=== PATIENT | male | born 1945 | race Caucasian/White ===

== ENCOUNTER 2020-05-12 14:19 | Inpatient (IN) | payer OTHER ==
[~2020-05-12] VITALS: Ht 175.3 cm; Wt 57.2 kg
[2020-05-12] MEDS ORDERED: BUSPAR 10MG10 MG PO (20:17)
[2020-05-12] MEDS ORDERED: GLUCOPHAGE XR500 M1 PO (20:18)
[2020-05-12] MEDS ORDERED: VALSARTAN160 MG PO (20:19)
[2020-05-12] MEDS ORDERED: KENALOG CREAM 015 GM TOP (20:24)
[2020-05-13 07:33] LABS: HEMOGLOBIN 11.2 gm/dl (14.0-17.5); RED BLOOD COUNT 3.73 M/UL (4.20-5.50); WHITE BLOOD COUNT 4.6 K/UL (4.5-11.0)
[2020-05-13 08:02] LABS: BUN/CREATININE RATIO 27 (0-10)
[2020-05-14 03:35] LABS: HEMOGLOBIN 10.3 gm/dl (14.0-17.5); WHITE BLOOD COUNT 5.7 K/UL (4.5-11.0)
[2020-05-14 03:38] LABS: RED BLOOD COUNT 3.28 M/UL (4.20-5.50)
[2020-05-14 03:58] LABS: BUN/CREATININE RATIO 26 (0-10)
[2020-05-15 04:02] LABS: HEMOGLOBIN 9.6 gm/dl (14.0-17.5); RED BLOOD COUNT 3.12 M/UL (4.20-5.50); WHITE BLOOD COUNT 4.7 K/UL (4.5-11.0)
[2020-05-15 04:41] LABS: BUN/CREATININE RATIO 29 (0-10)
[2020-05-16 06:40] LABS: HEMOGLOBIN 9.3 gm/dl (14.0-17.5); RED BLOOD COUNT 2.99 M/UL (4.20-5.50); WHITE BLOOD COUNT 4.5 K/UL (4.5-11.0)
[2020-05-16 07:11] LABS: BUN/CREATININE RATIO 33 (0-10)
[2020-05-16] MEDS ORDERED: HYDROCODON-ACE1 EAC2 PO (08:38)
[2020-05-16] MEDS ORDERED: NORCO 10-325 T1 EACH PO (11:20)
== END 2020-05-16 20:26 | DRG 481 ==
LOC: M/S 19:48
PROVIDERS: Internal Medicine; Orthopaedic Surgery; Physician Assistant Medical; ADMIT Internal Medicine
PROC: 0QS706Z Reposition Left Upper Femur with Intramedullary Internal Fixation Device, Open Approach (ICD-10-PCS; principal; 2020-05-13 15:30)
DX: S72.142A Displaced intertrochanteric fracture of left femur, initial encounter for closed fracture (principal); E44.1 Mild protein-calorie malnutrition; Z68.1 Body mass index [BMI] 19.9 or less, adult; W00.0XXA Fall on same level due to ice and snow, initial encounter; Y92.009 Unspecified place in unspecified non-institutional (private) residence as the place of occurrence of the external cause; Z79.899 Other long term (current) drug therapy; I10 Essential (primary) hypertension; E11.9 Type 2 diabetes mellitus without complications; M19.90 Unspecified osteoarthritis, unspecified site; K40.90 Unilateral inguinal hernia, without obstruction or gangrene, not specified as recurrent; Z20.828 Contact with and (suspected) exposure to other viral communicable diseases; R33.9 Retention of urine, unspecified; L98.499 Non-pressure chronic ulcer of skin of other sites with unspecified severity
CPT/HCPCS: 36415; 71045; 73502; 76000; 80048; 82962; 83735; 85025; 85027; 93005; 97110-GP-CQ; 97116-GP-CQ; 97162; 97165; 97530; 97530-GP-CQ; C1713; J0690; J1885; J2001; J2270; J2704; J3010; J7120; U0002